=== PATIENT | male | born 1965 | race Caucasian/White ===

== ENCOUNTER 2017-09-17 02:30 | Emergency (ER) | payer OTHER ==
[~2017-09-17] VITALS: Ht 177.8 cm; Wt 91.2 kg
[2017-09-17] MEDS ORDERED: CLON.5 PO (03:18)
[2017-09-17] MEDS ORDERED: Flonase 0.05% N16 GM (03:19)
[2017-09-17] MEDS ORDERED: AFLURIA QU IM (03:20)
[2017-09-17 03:38] LABS: Source, Urine Clean Catch
[2017-09-17 03:49] LABS: BASOPHILS ABSOLUTE AUTO 0.04 K/mm3 (0.00-0.23); BASOPHILS PERCENT AUTO 0 % (0-2); EOSINOPHILS ABSOLUTE AUTO 0.18 K/mm3 (0.00-0.68); EOSINOPHILS PERCENT AUTO 2 % (0-6); Hematocrit 42.3 % (37.0-53.0); Hemoglobin 14.8 g/dL (13.5-17.5); IMMATURE GRAN ABSOLUTE AUTO 0.02 K/mm3 (0.00-0.10); IMMATURE GRAN PERCENT AUTO 0 % (0-1); LYMPHOCYTES ABSOLUTE AUTO 1.46 K/mm3 (0.84-5.20); LYMPHOCYTES PERCENT AUTO 14 % (21-46); MONOCYTES ABSOLUTE AUTO 0.73 K/mm3 (0.16-1.47); MONOCYTES PERCENT AUTO 7 % (4-13); Mean Corpuscular HGB 30.1 pg (26.0-34.0); Mean Corpuscular Volume 86 fL (80-100); Mean Platelet Volume 9.4 fL (9.1-12.4); NEUTROPHILS ABSOLUTE AUTO 7.79 K/mm3 (1.96-9.15); NEUTROPHILS PERCENT AUTO 76 % (41-73); Platelet Count 335 K/mm3 (150-400); RDW Coefficient Variation 13.5 % (11.7-14.2); RDW Standard Deviation 42.5 fL (35.1-46.3); Red Blood Cell Count 4.92 M/mm3 (4.30-5.90); White Blood Cell Count 10.22 K/mm3 (4.00-11.30)
[2017-09-17 03:51] LABS: Bilirubin, Urine Neg (Neg); Blood, Urine 1+ (Neg); Glucose Qualitative, Urine Neg (Neg); Ketones, Urine Neg (Neg); Leukocyte Esterase, Urine 1+ (Neg); Nitrite, Urine Neg (Neg); Protein, Urine 1+ (Neg); Specific Gravity, Urine 1.015 (1.003-1.022); Urobilinogen, Urine 1+ (Normal)
[2017-09-17 04:07] LABS: Alanine Aminotransfer (ALT/SGP 25 U/L (12-78); Albumin, Blood 3.9 g/dL (3.4-5.0); Albumin/Globulin Ratio 1.1 (0.8-1.8); Alk Phos 73 U/L (50-136); Anion Gap 7 mmol/L (6-16); Aspartate Aminotrans (AST/SGOT 24 U/L (12-37); Bilirubin, Total 0.5 mg/dL (0.1-1.0); Blood Urea Nitrogen 20 mg/dL (8-24); Bun/Creatinine Ratio 21.4 (12.0-20.0); CO2, Blood 27 mmol/L (21-32); Calcium, Blood 8.8 mg/dL (8.5-10.1); Chloride, Blood 106 mmol/L (98-108); Creatinine, Blood 0.94 mg/dL (0.60-1.20); Globulin, Blood 3.5 g/dL (2.2-4.0); Glomerular Filtration Rate >60 (60-); Glucose, Blood 112 mg/dL (70-99); Potassium, Blood 3.5 mmol/L (3.5-5.5); Sodium, Blood 140 mmol/L (136-145); Total Protein, Blood 7.4 g/dL (6.4-8.2)
[2017-09-17 04:15] LABS: Appearance, Urine Clear (Clear); Color, Urine Yellow (P-Yellow); U Amphetamine Screen Not Detected; U Barbituate Screen Not Detected; U Benzodiazapine Screen Not Detected; U Buprenorphine Screen Not Detected; U Cannabinoids Screen Not Detected; U Cocaine Screen Not Detected; U Methadone Screen Not Detected; U Methamphetamine Screen Not Detected; U Opiates Screen Not Detected; U Oxycodone Screen Not Detected; U Phencyclidine Screen Not Detected; U Propoxyphene Screen Not Detected
[2017-09-17 04:16] LABS: Bacteria Many /hpf; Red Blood Cells, Urine 0-2 /hpf (0-2); Squamous Epithelial Cells Not Seen /hpf (Few)
[2018-06-02] MEDS ORDERED: PRAZ5 (15:54)
[2018-06-02] MEDS ORDERED: QUET100 (15:54)
[2018-06-02] MEDS ORDERED: Cyclobenzaprine5 MG PO (17:52)
[2018-06-02] MEDS ORDERED: KETO10 PO (17:52)
[2018-07-25] MEDS ORDERED: ONDA4ODT MM (19:52)
[2018-07-25] MEDS ORDERED: BENZ100A PO (19:52)
== END 2017-09-17 05:00 | disposition home or self-care (01) ==
LOC: ER 02:30
PROVIDERS: Emergency Medicine
DX: F41.9 Anxiety disorder, unspecified (principal); F43.0 Acute stress reaction; F17.210 Nicotine dependence, cigarettes, uncomplicated
CPT/HCPCS: 80053; 81001; 85025; 87086; 96374; 99283; J2060

== ENCOUNTER 2018-08-18 23:11 | Emergency (ER) | payer OTHER ==
[~2018-08-18] VITALS: Ht 182.9 cm; Wt 86.2 kg
[~2018-08-18 23:11] MED LIST: AFLURIA QU IM; BENZ100A PO; CLON.5 PO; Cyclobenzaprine5 MG PO; Flonase 0.05% N16 GM; KETO10 PO; ONDA4ODT MM; PRAZ5; QUET100
== END 2018-08-18 23:40 | disposition home or self-care (01) ==
LOC: ER 23:11
DX: S40.852A Superficial foreign body of left upper arm, initial encounter (principal); F17.210 Nicotine dependence, cigarettes, uncomplicated; Z79.899 Other long term (current) drug therapy; Z87.81 Personal history of (healed) traumatic fracture
CPT/HCPCS: 99283

== ENCOUNTER 2019-04-16 08:30 | Day surgery (SDC) | payer OTHER ==
[~2019-04-16] VITALS: Ht 177.8 cm; Wt 83.1 kg
[~2019-04-16 08:30] MED LIST changes: +BENADRYL25 MG PO; +Melatonin1 MG PO; +PRAZ5 PO; +VITAMIN B-121000 MCG PO
--- NOTE | 2019-04-16 09:00 | NUR ---
Ambulatory in Day SurgeryPatient states colon prep results clear. History, Chart, Medications and Allergies reviewed before start of procedure.Lungs clear T/O to Auscultation. Patient confirms NPO status and agrees with scheduled surgery. Pre-Op teaching done. Pt verbalizes understanding.
--- NOTE | 2019-04-16 09:56 | NUR ---
04/16/19 0956 Derrek Velazquez PATIENT DETERMINED TO BE ASA APPROPRIATE FOR PROPOFOL SEDATION PRIOR TO START OF PROCEDURE BY 3-LEAD EKG REVIEWED WITH PHYSICIAN PRIOR TO START OF PROCEDURE.Patient to ENDO 1History, Chart, Medications and Allergies reviewed before start of procedure.MONITOR INTACT WITH CONTINUOUS PULSE OXIMETRY AND INTERMITTENT BP.O2 VIA N/C INTACT THROUGHOUT SEDATION/PROCEDURE.
--- NOTE | 2019-04-16 10:41 | NUR ---
Discharge instructions reviewed with patient. Patient verbalizes understanding. Copy given to patient to take home. TOLERATING COFFEE WELL. NO C/O. RIDE HOME HERE. Discharged via wheelchair to private car for ride home.
== END 2019-04-16 10:50 | disposition home or self-care (01) ==
LOC: ORSCMMR 08:30 → ORD 09:30 → ORSCMMR 10:50
PROVIDERS: Internal Medicine Gastroenterology
PROC: 0DBN8ZX Excision of Sigmoid Colon, Via Natural or Artificial Opening Endoscopic, Diagnostic (ICD-10-PCS; principal; 2019-04-16 09:30)
DX: Z12.11 Encounter for screening for malignant neoplasm of colon (principal); K63.5 Polyp of colon; K64.8 Other hemorrhoids; J44.9 Chronic obstructive pulmonary disease, unspecified; F43.10 Post-traumatic stress disorder, unspecified; F17.210 Nicotine dependence, cigarettes, uncomplicated; Z79.899 Other long term (current) drug therapy
CPT/HCPCS: 88305; J2704; J7120